=== PATIENT | female | born 1995 | race Caucasian/White ===

== ENCOUNTER 2022-08-23 07:00 | Inpatient (IN) | payer MEDICAID ==
[~2022-08-23] VITALS: Ht 154.9 cm; Wt 80.7 kg
[~2022-08-23 07:00] MED LIST: FERR325T6 MT; IBUP-2030 MT; MV-M1TAB19 PO; OMEG-31 MT; PREN1TAB78 MT
[2022-08-23 09:40] LABS: CLARITY URINE CLEAR (CLEAR); COLOR URINE YELLOW (YELLOW); KETONES URINE NEGATIVE (NEGATIVE); LEUKOCYTE ESTERASE URINE NEGATIVE (NEGATIVE); NITRITE URINE NEGATIVE (NEGATIVE); OCCULT BLOOD URINE NEGATIVE (NEGATIVE); PROTEIN URINE NEGATIVE (NEGATIVE); SPECIFIC GRAVITY URINE 1.005 (1.005-1.030); UROBILINOGEN URINE 0.2 E.U./dL (0.2-1.0)
[2022-08-23] MEDS: LACTATED RINGERS 1,000 ML IV SCH ×2 (10:00→19:49)
[2022-08-23] MEDS ORDERED: OXYTOCIN 30 UNITS/500ML NS PMX 500 ML IV SCH ×2 (10:00→12:45)
[2022-08-23 10:49] LABS: BASOPHILS % 0.2 % (0.0-2.0); EOSINOPHILS % 0.3 % (0.0-5.0); HEMATOCRIT. 39.5 % (36.0-48.0); HEMOGLOBIN. 13.2 g/dL (12.0-16.0); LYMPHOCYTES % 18.2 % (20.0-50.0); MEAN CORPUSCULAR VOLUME 95.5 fL (81.0-99.0); MEAN PLATELET VOLUME 9.2 fl (7.4-10.4); MONOCYTES % 4.1 % (2.0-8.0); NEUTROPHILS % 77.2 % (40.0-76.0); PLATELET 199 x1000/uL (130-400); RED BLOOD CELL COUNT 4.13 mill/uL (4.2-5.4); RED CELL DISTRIBUTION WIDTH 13.8 % (11.6-14.6)
[2022-08-23 10:57] LABS: INR 0.9; PROTHROMBIN TIME 9.6 sec (9.6-11.0)
[2022-08-23 11:33] LABS: HEPATITIS B SURFACE ANTIGEN NEGATIVE
[2022-08-23 11:45] LABS: *AMPHETAMINES SCREEN URINE NEGATIVE (NEGATIVE); *BARBITURATES SCREEN URINE NEGATIVE (NEGATIVE); *BENZODIAZEPINES SCREEN URINE NEGATIVE (NEGATIVE); *COCAINE SCREEN URINE NEGATIVE (NEGATIVE); CANNABINOID URINE SCREEN NEGATIVE (NEGATIVE); METHADONE URINE SCREEN NEGATIVE (NEGATIVE); OPIATES URINE SCREEN NEGATIVE (NEGATIVE); PHENCYCLIDINE URINE SCREEN NEGATIVE (NEGATIVE)
[2022-08-23] MEDS ORDERED: OXYCODONE HCL/ACETAMINOPHEN 5/325MG TABLET PO PRN (12:45)
[2022-08-23] MEDS ORDERED: BISACODYL 10MG SUPP PR PRN (12:45)
[2022-08-23] MEDS ORDERED: ONDANSETRON HCL 4MG/2ML INJ IV PRN (12:45)
[2022-08-23] MEDS ORDERED: HEMORRHOIDAL SUPP PR PRN (12:45)
[2022-08-23] MEDS ORDERED: LANOLIN OINT 7GM TUBE TOP PRN (12:45)
[2022-08-23] MEDS ORDERED: IBUPROFEN 400MG TABLET PO PRN (12:45)
[2022-08-23] MEDS ORDERED: RHO(D) IMMUNE GLOBULIN 300 MCG/SYR IM PRN (12:45)
[2022-08-23] MEDS ORDERED: DIPHENHYDRAMINE 25MG CAPSULE PO PRN (12:45)
[2022-08-23] MEDS ORDERED: EPHEDRINE SULFATE 50MG/ML VIAL ONE (12:52)
[2022-08-23] MEDS ORDERED: MORPHINE SULFATE/PF 1MG/ML 10ML AMP ONE (12:52)
[2022-08-23] MEDS ORDERED: PHENYLEPHRINE HCL 10 MG/ML 1ML (IV VIAL) IV ONE (12:52)
[2022-08-23] MEDS ORDERED: OXYTOCIN 10 UNITS/ML 1ML ONE (12:53)
[2022-08-23] MEDS ORDERED: CEFAZOLIN SODIUM 1000MG/VIAL ONE (12:53)
[2022-08-23] MEDS ORDERED: ONDANSETRON HCL 4MG/2ML INJ ONE (12:53)
[2022-08-23] MEDS ORDERED: DEXAMETHASONE 4MG/ML 1ML VIAL ONE (12:53)
[2022-08-23] MEDS ORDERED: FENTANYL CITRATE/PF 50MCG/ML 2ML VIAL ONE (13:26)
[2022-08-23] MEDS ORDERED: MIDAZOLAM HCL 2 MG/2 ML VIAL ONE (13:26)
[2022-08-23] MEDS ORDERED: MORPHINE SULFATE/PF 1MG/ML 10ML AMP EPI PRN (13:30)
[2022-08-23] MEDS ORDERED: NALOXONE HCL 0.4 MG/ML 1ML VIAL IV PRN (13:30)
[2022-08-23] MEDS ORDERED: FENTANYL CITRATE/PF 50MCG/ML 2ML VIAL IV PRN (13:30)
[2022-08-23 16:20] VITALS: BP 97/66
[2022-08-23 16:40] VITALS: BP 100/48
[2022-08-23 17:00] VITALS: BP 102/57
[2022-08-23 20:00] VITALS: BP 92/68
[2022-08-23] MEDS: KETOROLAC 30MG/ML VIAL IV PRN (21:05)
[2022-08-23] MEDS: MAGNESIUM/ALUMINUM HYDROXIDE/SIMETHICONE 30ML UDC PO SCH ×2 (21:20→23:31)
[2022-08-23] MEDS: DOCUSATE SODIUM 100MG CAPSULE PO SCH (23:30)
[2022-08-23] MEDS: SIMETHICONE 80MG TABLET CHEW PO SCH (23:30)
[2022-08-24 00:05] VITALS: BP 101/45
[2022-08-24] MEDS: KETOROLAC 30MG/ML VIAL IV PRN (02:55)
[2022-08-24] MEDS: LACTATED RINGERS 1,000 ML IV SCH (03:38)
[2022-08-24 04:00] VITALS: BP 104/47
[2022-08-24 08:00] VITALS: BP 91/43
[2022-08-24 08:46] LABS: BASOPHILS % 0.1 % (0.0-2.0); EOSINOPHILS % 0.3 % (0.0-5.0); HEMATOCRIT. 29.1 % (36.0-48.0); HEMOGLOBIN. 9.8 g/dL (12.0-16.0); LYMPHOCYTES % 23.4 % (20.0-50.0); MEAN CORPUSCULAR HEMOGLOBIN 32.8 pg (28.0-32.0); MEAN CORPUSCULAR VOLUME 97.4 fL (81.0-99.0); MEAN PLATELET VOLUME 8.9 fl (7.4-10.4); MONOCYTES % 6.7 % (2.0-8.0); NEUTROPHILS % 69.5 % (40.0-76.0); PLATELET 170 x1000/uL (130-400); RED BLOOD CELL COUNT 2.99 mill/uL (4.2-5.4); RED CELL DISTRIBUTION WIDTH 13.7 % (11.6-14.6)
[2022-08-24] MEDS: FERROUS SULFATE 325MG TABLET PO SCH (13:12)
[2022-08-24] MEDS: SIMETHICONE 80MG TABLET CHEW PO SCH ×2 (13:12→21:20)
[2022-08-24] MEDS: PRENATAL VIT/FE FUMARATE/FA TABLET PO SCH (13:12)
[2022-08-24] MEDS: IBUPROFEN 800MG TABLET PO PRN ×2 (13:12→21:20)
[2022-08-24 16:00] VITALS: BP 99/44
[2022-08-24 20:00] VITALS: BP 97/56
[2022-08-24] MEDS: DOCUSATE SODIUM 100MG CAPSULE PO SCH (21:20)
[2022-08-25 04:00] VITALS: BP 103/54
[2022-08-25] MEDS: IBUPROFEN 800MG TABLET PO PRN ×2 (04:03→14:05)
[2022-08-25] MEDS: FERROUS SULFATE 325MG TABLET PO SCH ×2 (07:30→12:30)
[2022-08-25] MEDS: MAGNESIUM/ALUMINUM HYDROXIDE/SIMETHICONE 30ML UDC PO SCH ×2 (07:30→12:30)
[2022-08-25 07:45] VITALS: BP 99/54
[2022-08-25] MEDS: SIMETHICONE 80MG TABLET CHEW PO SCH ×2 (07:59→12:41)
[2022-08-25] MEDS ORDERED: MEDROXYPROGESTERONE ACETATE 150MG/ML VIAL IM NR (08:00)
[2022-08-25] MEDS: PRENATAL VIT/FE FUMARATE/FA TABLET PO SCH (08:10)
[2022-08-25 15:45] VITALS: BP 102/55
== END 2022-08-25 16:20 | disposition home or self-care (01) | DRG 540 ==
LOC: 8 EST LDRP 07:00 → OBSVTOIN 07:00 → 8EST 16:51
PROVIDERS: ADMIT Obstetrics & Gynecology; ATTEND Obstetrics & Gynecology
PROC: 10D00Z1 Extraction of Products of Conception, Low, Open Approach (ICD-10-PCS; principal; 2022-08-23)
DX: O34.211 Maternal care for low transverse scar from previous cesarean delivery (principal); O36.5930 Maternal care for other known or suspected poor fetal growth, third trimester, not applicable or unspecified; D64.9 Anemia, unspecified; Z20.822 Contact with and (suspected) exposure to COVID-19; Z37.0 Single live birth; Z3A.39 39 weeks gestation of pregnancy
CPT/HCPCS: 36415; 76805; 76818; 80305; 81003; 85025; 86592; 86703; 86762; 86850; 86900; 86920; 87340; 87426; 88307; 99281; J0690; J1050; J1100; J1885; J2250; J2274; J2370; J2405; J3010; J3490; A4315; J2590